=== PATIENT | female | born 1945 | race Caucasian/White ===

== ENCOUNTER → 2016-05-04 | Outpatient (CLI) | payer MEDICARE, OTHER ==
[~2016-05-04] MED LIST: CHOLESTEROL MED; PREDNISONE20 MG PO
[2016-05-04 07:50] VITALS: BP 137/78; PULSE 83
== END ==
LOC: COL.RAD 07:01
DX: K44.9 Diaphragmatic hernia without obstruction or gangrene (principal); I70.91 Generalized atherosclerosis; R10.31 Right lower quadrant pain; Z90.49 Acquired absence of other specified parts of digestive tract; Z90.710 Acquired absence of both cervix and uterus
CPT/HCPCS: Q9967

== ENCOUNTER → 2016-05-18 | Outpatient (CLI) | payer MEDICARE, OTHER | LOC: COL.RAD 14:37 | DX: Z85.9 Personal history of malignant neoplasm, unspecified (principal); F17.200 Nicotine dependence, unspecified, uncomplicated ==

== ENCOUNTER → 2017-03-22 | Outpatient (CLI) | payer MEDICARE, OTHER | LOC: MC.RAD 08:09 | DX: Z12.31 Encounter for screening mammogram for malignant neoplasm of breast (principal); N64.89 Other specified disorders of breast; C09.9 Malignant neoplasm of tonsil, unspecified; F32.9 Major depressive disorder, single episode, unspecified; J44.9 Chronic obstructive pulmonary disease, unspecified; H93.13 Tinnitus, bilateral ==

== ENCOUNTER → 2017-03-24 | Outpatient (CLI) | payer MEDICARE, OTHER | LOC: COL.RAD 13:19 | DX: R91.1 Solitary pulmonary nodule (principal); F17.200 Nicotine dependence, unspecified, uncomplicated ==

== ENCOUNTER → 2017-03-31 | Outpatient (CLI) | payer MEDICARE, OTHER | LOC: MC.RAD 03-30 13:30 | DX: D24.1 Benign neoplasm of right breast (principal) ==

== ENCOUNTER → 2017-12-15 | Outpatient (CLI) | payer MEDICARE, OTHER | LOC: COL.RAD 07:56 | DX: K59.00 Constipation, unspecified (principal); R91.1 Solitary pulmonary nodule; R10.9 Unspecified abdominal pain; R11.2 Nausea with vomiting, unspecified; Z90.49 Acquired absence of other specified parts of digestive tract ==

== ENCOUNTER 2018-02-24 06:56 | Day surgery (SDC) | payer MEDICARE, OTHER ==
[~2018-02-24] VITALS: Ht 167.6 cm; Wt 77.9 kg
[2018-02-24 07:47] VITALS: BP 132/62; PULSE 86; TEMP 98.9
[2018-02-24] MEDS ORDERED: ULTRAM 50MG TAB50 MG PO (08:03)
[2018-02-24] MEDS ORDERED: PROTONIX 40MG T40 MG PO (08:03)
[2018-02-24] MEDS ORDERED: VALIUM 5MG T5 MG/TAB PO (08:03)
[2018-02-24] MEDS ORDERED: ZOFRAN 4MG T4 MG/TAB PO (08:04)
[2018-02-24] MEDS ORDERED: PERCOCET 325 MG1 TA2 PO (08:05)
[2018-02-24] MEDS ORDERED: CELEXA40 MG PO (08:05)
[2018-02-24] MEDS ORDERED: MIRALAX PA17 GM/Dose PO (08:06)
[2018-02-24 10:08] VITALS: BP 128/63; PULSE 67; TEMP 98.2
[2018-02-24 10:23] VITALS: BP 125/58; PULSE 68
[2018-02-24 10:38] VITALS: BP 130/77; PULSE 66
== END 2018-02-24 11:00 | disposition home or self-care (01) ==
LOC: SDCO 06:56
DX: C20 Malignant neoplasm of rectum (principal); Z80.9 Family history of malignant neoplasm, unspecified; K58.9 Irritable bowel syndrome, unspecified; Z85.89 Personal history of malignant neoplasm of other organs and systems; F32.9 Major depressive disorder, single episode, unspecified; G47.33 Obstructive sleep apnea (adult) (pediatric); F17.210 Nicotine dependence, cigarettes, uncomplicated; F41.9 Anxiety disorder, unspecified; Z79.899 Other long term (current) drug therapy
CPT/HCPCS: C1788; J0690; J1644; J2250; J2405; J2704; J3010; J7120

== ENCOUNTER 2018-04-02 20:35 | Emergency (ER) | payer MEDICARE, OTHER ==
[~2018-04-02] VITALS: Ht 167.6 cm; Wt 68.2 kg
[~2018-04-02 20:35] MED LIST changes: +CELEXA40 MG PO; +MIRALAX PA17 GM/Dose PO; +PERCOCET 325 MG1 TA2 PO; +PROTONIX 40MG T40 MG PO; +ULTRAM 50MG TAB50 MG PO; +VALIUM 5MG T5 MG/TAB PO; +ZOFRAN 4MG T4 MG/TAB PO
[2018-04-02 21:15] LABS: BASO % 0.3 % (0.0-2.0); EOS # 0.4 (0.0-0.7); EOS % 4.4 % (0-4.0); GRAN # 5.2 (1.4-6.5); GRAN % 60.6 % (42.2-75.2); LYMPH # 2.6 (1.2-3.4); LYMPH % 29.8 % (20.0-51.0); MEAN CELL VOLUME 95 fl (80.0-100.0); MEAN CORPUSCULAR HGB CONC 32 g/dl (33.0-37.0); MEAN PLATELET VOLUME 8.9 fl (7.4-10.4); MONO # 0.4 (0.1-0.6); PLATELET COUNT 514 K/mm3 (130-400); RED BLOOD COUNT 3.29 M/mm3 (4.10-5.30); REDCELL DISTRIBUTION WIDTH-CV 14.2 % (11.5-14.5)
[2018-04-02 21:16] LABS: HEMATOCRIT 31.1 % (37.0-47.0); HEMOGLOBIN 9.8 g/dl (12.5-16.0); MEAN CORPUSCULAR HEMOGLOBIN 30 pg (27.0-31.0)
[2018-04-02 21:27] LABS: ALBUMIN 3.3 gm/dL (3.5-5.0); BILIRUBIN,TOTAL 0.5 mg/dL (0.0-1.0); C-REACTIVE PROTEIN 2.2 mg/dL (0.0-0.9); CALCIUM 9.1 mg/dL (8.4-10.2); CREATININE, serum 0.64 mg/dL (0.52-1.25); POTASSIUM 3.7 mmol/L (3.4-5.0); TOTAL PROTEIN 6.4 gm/dL (6.4-8.2)
[2018-04-02 23:13] VITALS: BP 120/92; PULSE 95; TEMP 97.9
== END 2018-04-02 23:22 | disposition home or self-care (01) ==
LOC: COL.ER 20:35
PROVIDERS: Emergency Medicine
DX: L76.22 Postprocedural hemorrhage of skin and subcutaneous tissue following other procedure (principal); Z90.49 Acquired absence of other specified parts of digestive tract; Z85.038 Personal history of other malignant neoplasm of large intestine; Z85.818 Personal history of malignant neoplasm of other sites of lip, oral cavity, and pharynx; Z87.891 Personal history of nicotine dependence
CPT/HCPCS: J7030

== ENCOUNTER 2018-04-03 19:34 | Emergency (ER) | payer MEDICARE, OTHER ==
[~2018-04-03] VITALS: Ht 167.6 cm; Wt 77.3 kg
[2018-04-03 19:36] VITALS: TEMP 98.5
[2018-04-03 20:24] LABS: BASO % 0.4 % (0.0-2.0); EOS # 0.3 (0.0-0.7); EOS % 3.1 % (0-4.0); GRAN # 6.5 (1.4-6.5); GRAN % 70.4 % (42.2-75.2); HEMOGLOBIN 10.2 g/dl (12.5-16.0); LYMPH # 1.9 (1.2-3.4); LYMPH % 20.7 % (20.0-51.0); MEAN CELL VOLUME 94 fl (80.0-100.0); MEAN CORPUSCULAR HEMOGLOBIN 30 pg (27.0-31.0); MEAN CORPUSCULAR HGB CONC 32 g/dl (33.0-37.0); MEAN PLATELET VOLUME 8.8 fl (7.4-10.4); MONO # 0.4 (0.1-0.6); MONO % 4.2 % (1.7-9.3); PLATELET COUNT 596 K/mm3 (130-400); RED BLOOD COUNT 3.36 M/mm3 (4.10-5.30); REDCELL DISTRIBUTION WIDTH-CV 14.4 % (11.5-14.5)
[2018-04-03 20:26] LABS: HEMATOCRIT 31.7 % (37.0-47.0)
[2018-04-03 20:30] LABS: ALBUMIN 3.6 gm/dL (3.5-5.0); BILIRUBIN,TOTAL 0.5 mg/dL (0.0-1.0); CALCIUM 9.3 mg/dL (8.4-10.2); CREATININE, serum 0.68 mg/dL (0.52-1.25); POTASSIUM 3.7 mmol/L (3.4-5.0); TOTAL PROTEIN 6.5 gm/dL (6.4-8.2)
[2018-04-03 21:26] VITALS: BP 110/70; PULSE 88
== END 2018-04-03 21:26 | disposition home or self-care (01) ==
LOC: COL.ER 19:34
PROVIDERS: Emergency Medicine
DX: L76.32 Postprocedural hematoma of skin and subcutaneous tissue following other procedure (principal); Z87.891 Personal history of nicotine dependence; Z90.710 Acquired absence of both cervix and uterus; Z85.818 Personal history of malignant neoplasm of other sites of lip, oral cavity, and pharynx; Z85.038 Personal history of other malignant neoplasm of large intestine

== ENCOUNTER → 2018-08-08 | Outpatient (CLI) | payer MEDICARE, OTHER | LOC: COL.RAD 08:30 | DX: K56.699 Other intestinal obstruction unspecified as to partial versus complete obstruction (principal); Z85.048 Personal history of other malignant neoplasm of rectum, rectosigmoid junction, and anus ==

== ENCOUNTER → 2018-10-05 | Outpatient (CLI) | payer MEDICARE, OTHER | LOC: COL.RAD 12:21 | DX: R10.30 Lower abdominal pain, unspecified (principal); R11.0 Nausea; Z93.3 Colostomy status; Z90.49 Acquired absence of other specified parts of digestive tract ==

== ENCOUNTER 2019-02-02 08:41 | Emergency (ER) | payer MEDICARE, OTHER ==
[~2019-02-02] VITALS: Ht 167.6 cm; Wt 70.5 kg
[2019-02-02 08:47] VITALS: TEMP 97.8
[2019-02-02 09:25] LABS: BASO # 0.1 (0.0-0.2); BASO % 0.6 % (0.0-2.0); EOS % 0.5 % (0-4.0); GRAN # 6.2 (1.4-6.5); GRAN % 77.4 % (42.2-75.2); HEMATOCRIT 42.2 % (37.0-47.0); HEMOGLOBIN 14.3 g/dl (12.5-16.0); LYMPH # 1.4 (1.2-3.4); LYMPH % 17.1 % (20.0-51.0); MEAN CELL VOLUME 90 fl (80.0-100.0); MEAN CORPUSCULAR HEMOGLOBIN 31 pg (27.0-31.0); MEAN CORPUSCULAR HGB CONC 34 g/dl (33.0-37.0); MONO # 0.3 (0.1-0.6); MONO % 3.9 % (1.7-9.3); PLATELET COUNT 327 K/mm3 (130-400); RED BLOOD COUNT 4.68 M/mm3 (4.10-5.30); REDCELL DISTRIBUTION WIDTH-CV 14.5 % (11.5-14.5)
[2019-02-02 09:34] LABS: ALANINE AMINOTRANSFERASE 21 U/L (9-52); ALBUMIN 4.3 gm/dL (3.5-5.0); ALKALINE PHOSPHATASE 111 U/L (50-136); ANION GAP 8 mmol/L (7-16); AST,SGOT 22 U/L (15-37); BILIRUBIN,TOTAL 0.4 mg/dL (0.0-1.0); BLOOD UREA NITROGEN 12 mg/dL (7-17); CALCIUM 9.9 mg/dL (8.4-10.2); CARBON DIOXIDE 23 mmol/L (22-30); CHLORIDE 110 mmol/L (98-107); CREATININE, serum 0.75 (0.52-1.25); GLUCOSE 138 mg/dL (74-106); LIPASE 62 U/L (23-300); POTASSIUM 3.9 mmol/L (3.4-5.0); SODIUM 141 mmol/L (137-145)
[2019-02-02 09:35] LABS: PROTHROMBIN TIME 11.5 SECONDS (9.7-12.8)
[2019-02-02 09:38] LABS: C-REACTIVE PROTEIN < 0.5 mg/dL (0.0-0.9)
[2019-02-02 10:16] LABS: COLLECTION METHOD CLEAN CATCH
[2019-02-02 10:30] LABS: PH 6 (5-8); SQUAMOUS EPITHELIAL 0-2 /hpf; URINE APPEARANCE Clear; URINE BACTERIA None Seen /hpf; URINE BILIRUBIN Negative (NEGATIVE); URINE BLOOD 1+ (NEGATIVE); URINE COLOR Yellow; URINE GLUCOSE Negative (NEGATIVE); URINE KETONE Negative (NEGATIVE); URINE LEUKOCYTE ESTERASE Negative (NEGATIVE); URINE NITRATE Negative (NEGATIVE); URINE PROTEIN(semi-quant) Negative (NEGATIVE); URINE UROBILINOGEN Negative (NEGATIVE)
[2019-02-02] MEDS ORDERED: AMOXICILLIN 8751 TAB PO (10:34)
[2019-02-02 11:28] VITALS: BP 138/70; PULSE 70
== END 2019-02-02 11:36 | disposition home or self-care (01) ==
LOC: COL.ER 08:41
PROVIDERS: Emergency Medicine
DX: K92.1 Melena (principal); R10.30 Lower abdominal pain, unspecified; Z85.038 Personal history of other malignant neoplasm of large intestine
CPT/HCPCS: C9113; J1200; J2405; J2930; J7030; Q9967

== ENCOUNTER → 2019-03-12 | Outpatient (CLI) | payer MEDICARE, OTHER ==
[~2019-03-12] MED LIST changes: +AMOXICILLIN 8751 TAB PO
== END ==
LOC: MHCPAIN 10:05
DX: M47.817 Spondylosis without myelopathy or radiculopathy, lumbosacral region (principal); M53.3 Sacrococcygeal disorders, not elsewhere classified
CPT/HCPCS: G0463

== ENCOUNTER → 2019-03-15 | Outpatient (CLI) | payer MEDICARE | LOC: MHCPAIN 09:44 | DX: M54.5 Low back pain (principal) | CPT/HCPCS: A9585; J1040; Q9967 ==

== ENCOUNTER → 2019-03-27 | Outpatient (CLI) | payer MEDICARE | LOC: MHCPAIN 09:57 | DX: M47.817 Spondylosis without myelopathy or radiculopathy, lumbosacral region (principal); M53.3 Sacrococcygeal disorders, not elsewhere classified | CPT/HCPCS: G0463 ==

== ENCOUNTER → 2020-03-06 | Outpatient (CLI) | payer MEDICARE, OTHER | LOC: COL.RAD 10:03 | DX: K59.00 Constipation, unspecified (principal); R11.0 Nausea ==

== ENCOUNTER 2020-08-17 12:39 | Emergency (ER) | payer MEDICARE, OTHER ==
[~2020-08-17] VITALS: Ht 167.6 cm; Wt 71.8 kg
[2020-08-17 13:02] VITALS: TEMP 98.7
[2020-08-17] MEDS ORDERED: PROTONIX 40MG T40 MG PO (13:30)
[2020-08-17] MEDS ORDERED: ULTRAM 50MG TAB50 MG PO (13:30)
[2020-08-17] MEDS ORDERED: LINZESS145CAP PO (13:30)
[2020-08-17] MEDS ORDERED: VALIUM 5MG T5 MG/TAB PO (13:31)
[2020-08-17] MEDS ORDERED: ZOCOR 20MG20 MG PO (13:31)
[2020-08-17 13:41] LABS: COLLECTION METHOD IN
[2020-08-17 13:46] LABS: BASO # 0.1 (0.0-0.2); BASO % 0.8 % (0.0-2.0); EOS # 0.1 (0.0-0.7); EOS % 0.7 % (0-4.0); GRAN # 4.9 (1.4-6.5); GRAN % 67.5 % (42.2-75.2); HEMATOCRIT 42.9 % (37.0-47.0); HEMOGLOBIN 14.2 g/dl (12.5-16.0); LYMPH # 1.9 (1.2-3.4); LYMPH % 25.7 % (20.0-51.0); MEAN CELL VOLUME 92 fl (80.0-100.0); MEAN CORPUSCULAR HEMOGLOBIN 30 pg (27.0-31.0); MEAN CORPUSCULAR HGB CONC 33 g/dl (33.0-37.0); MEAN PLATELET VOLUME 9.2 fl (7.4-10.4); MONO # 0.4 (0.1-0.6); MONO % 4.8 % (1.7-9.3); PLATELET COUNT 319 K/mm3 (130-400); RED BLOOD COUNT 4.68 M/mm3 (4.10-5.30); REDCELL DISTRIBUTION WIDTH-CV 14.2 % (11.5-14.5)
[2020-08-17 13:57] LABS: ALBUMIN 4.1 gm/dL (3.5-5.0); BILIRUBIN,TOTAL 0.4 mg/dL (0.0-1.0); CALCIUM 9.5 mg/dL (8.4-10.2); CREATININE, serum 0.71 (0.52-1.25); POTASSIUM 4.2 mmol/L (3.4-5.0); TOTAL PROTEIN 7.1 gm/dL (6.4-8.2)
[2020-08-17 14:08] LABS: MUCOUS Present /lpf; PH 5 (5-8); SQUAMOUS EPITHELIAL 0-2 /hpf; URINE APPEARANCE Hazy; URINE BACTERIA None Seen /hpf; URINE BILIRUBIN Negative (NEGATIVE); URINE BLOOD Negative (NEGATIVE); URINE COLOR Yellow; URINE GLUCOSE Negative (NEGATIVE); URINE KETONE Trace (NEGATIVE); URINE LEUKOCYTE ESTERASE Negative (NEGATIVE); URINE NITRATE Negative (NEGATIVE); URINE PROTEIN(semi-quant) Negative (NEGATIVE)
[2020-08-17 14:22] LABS: INR 1.1 (0.8-3.0); PROTHROMBIN TIME 11.9 SECONDS (9.7-12.8)
[2020-08-17] MEDS ORDERED: AMOXICILLIN 50500 MG PO (15:13)
[2020-08-17] MEDS ORDERED: MEDROL 4MG DOSPA4 MG PO (15:13)
[2020-08-17] MEDS ORDERED: ARTIFICIAL TEAR15 M7 OP (15:13)
[2020-08-17] MEDS ORDERED: ZOVIRAX800 MG PO (15:13)
[2020-08-17 15:40] VITALS: BP 129/70; PULSE 78
== END 2020-08-17 15:40 | disposition home or self-care (01) ==
LOC: COL.ER 12:39
PROVIDERS: Personal Emergency Response Attendant
DX: G51.0 Bell's palsy (principal); Z88.6 Allergy status to analgesic agent
CPT/HCPCS: J7030; J7512

== ENCOUNTER 2020-09-20 03:54 | Inpatient (IN) | payer MEDICARE, OTHER ==
[~2020-09-20] VITALS: Ht 167.6 cm; Wt 75.5 kg
[~2020-09-20 03:54] MED LIST changes: +AMOXICILLIN 50500 MG PO; +ARTIFICIAL TEAR15 M7 OP; +LINZESS145CAP PO; +MEDROL 4MG DOSPA4 MG PO; +ZOCOR 20MG20 MG PO; +ZOVIRAX800 MG PO
[2020-09-20 04:29] LABS: ARTERIAL BLD GAS O2 SATURATION 92.1 % (92-100); ARTERIAL BLD GAS TCO2 CT 22.9; ARTERIAL BLOOD GAS BASE EXCESS -0.6 (-2-2); ARTERIAL BLOOD GAS PCO2 30.6 mmHg (35-45); ARTERIAL BLOOD GAS pH 7.47 (7.35-7.45)
[2020-09-20 04:51] LABS: BASO % 0.7 % (0.0-2.0); EOS % 0.2 % (0-4.0); GRAN # 3.6 (1.4-6.5); GRAN % 78.5 % (42.2-75.2); HEMOGLOBIN 15.2 g/dl (12.5-16.0); LYMPH # 0.8 (1.2-3.4); LYMPH % 16.3 % (20.0-51.0); MEAN CELL VOLUME 92 fl (80.0-100.0); MEAN CORPUSCULAR HEMOGLOBIN 30 pg (27.0-31.0); MEAN CORPUSCULAR HGB CONC 33 g/dl (33.0-37.0); MEAN PLATELET VOLUME 9.4 fl (7.4-10.4); MONO # 0.2 (0.1-0.6); MONO % 3.9 % (1.7-9.3); PLATELET COUNT 300 K/mm3 (130-400); RED BLOOD COUNT 5.02 M/mm3 (4.10-5.30); REDCELL DISTRIBUTION WIDTH-CV 15.1 % (11.5-14.5)
[2020-09-20 05:04] LABS: ALBUMIN 4.1 gm/dL (3.5-5.0); BILIRUBIN,TOTAL 0.7 mg/dL (0.0-1.0); CALCIUM 9.9 mg/dL (8.4-10.2); CREATININE, serum 0.72 (0.52-1.25); POTASSIUM 3.8 mmol/L (3.4-5.0); TOTAL PROTEIN 6.9 gm/dL (6.4-8.2)
[2020-09-20 05:17] LABS: TROPONIN-I 0.075 ng/mL (0.000-0.035)
[2020-09-20 06:11] LABS: COLLECTION METHOD CLEAN CATCH
[2020-09-20 06:16] LABS: PH 6 (5-8); SQUAMOUS EPITHELIAL 0-2 /hpf; URINE APPEARANCE Clear; URINE BACTERIA None Seen /hpf; URINE BILIRUBIN Negative (NEGATIVE); URINE BLOOD Negative (NEGATIVE); URINE COLOR Yellow; URINE GLUCOSE Negative (NEGATIVE); URINE KETONE Negative (NEGATIVE); URINE LEUKOCYTE ESTERASE Negative (NEGATIVE); URINE NITRATE Negative (NEGATIVE); URINE PROTEIN(semi-quant) Negative (NEGATIVE); URINE UROBILINOGEN Negative (NEGATIVE)
--- NOTE | 2020-09-20 10:37 | NUR ---
Pt admitted to medical floor rm [id number] from ED via WC, A&O x 4, reports headache pain 7 out of 10 on pain scale. PRN Tylenol administered per orders after notifying provider. Breath sounds slightly diminished in bases bilat. O2 provided via NC at 1 L/min. Saline lock IV to right AC without s/s of complications. Pt denies further needs at this time. Call light in reach.
[2020-09-20 12:00] VITALS: BP 136/74; PULSE 101; TEMP 99.3
[2020-09-20 14:34] LABS: TRICYCLIC ANTIDEPRESS URINE NEGATIVE
[2020-09-20 15:58] VITALS: BP 138/58; PULSE 92; TEMP 99
--- NOTE | 2020-09-20 18:56 | NUR ---
Report with HARVINDER Pham. Pt has had slight pain per baseline, PRN medication administered x 1 dose this afternoon. IV to right AC infiltrated at start of IV antibiotics which were immediately stopped and IV removed. Pt requested waiting to start new IV for pain to subside. New IV eventually started to left lateral forearm. O2 remains at 1-2 L/min via NC.
[2020-09-20 19:50] VITALS: BP 96/48; PULSE 91; TEMP 98.4
--- NOTE | 2020-09-20 22:04 | NUR ---
PT VERY SLEEPY, WOKE UP FOR ASSESS. DENIES PAIN OR LIGHTHEAD, DIZZY. SOA W EXCERTION. IV FLUIDS AND ZOSYN RUNNING. PT DID NOT EAT DINNER, POOR APPEITE. POC DISCUSSED. CALL LIGHT WI REACH. NEEDS MET.
[2020-09-21] VITALS (7 sets, daily range): BP systolic 105–130; BP diastolic 38–65; PULSE 78–87; TEMP 98.4–99.5
--- NOTE | 2020-09-21 04:49 | NUR ---
RESTED THOUGH THE NIGHT WO INCIDENT. DENTON FOR ROWE THIS AM. NEEDS MET.
[2020-09-21 06:57] LABS: MEAN CELL VOLUME 94 fl (80.0-100.0); MEAN CORPUSCULAR HGB CONC 32 g/dl (33.0-37.0); MEAN PLATELET VOLUME 10.4 fl (7.4-10.4); RED BLOOD COUNT 3.65 M/mm3 (4.10-5.30); REDCELL DISTRIBUTION WIDTH-CV 15.6 % (11.5-14.5)
--- NOTE | 2020-09-21 07:00 | NUR ---
Report with HARVINDER Pham. Pt sitting up in bed, c/o feeling anxious/stressed about the recent needle sticks, requesting medication if available. This nurse agrees to ask provider. IVF's infusing per orders through left forearm site without s/s of complications. No further needs reported. Call light in reach.
[2020-09-21 07:06] LABS: HEMATOCRIT 34.3 % (37.0-47.0); HEMOGLOBIN 11.1 g/dl (12.5-16.0); MEAN CORPUSCULAR HEMOGLOBIN 30 pg (27.0-31.0); PLATELET COUNT 189 K/mm3 (130-400)
[2020-09-21 07:26] LABS: CALCIUM 9.2 mg/dL (8.4-10.2); CREATININE, serum 0.68 (0.52-1.25); POTASSIUM 3.8 mmol/L (3.4-5.0)
[2020-09-21 08:04] LABS: BAND 10 % (0-10); LYMPHOCYTE 19 % (20.0-51.0); NEUTROPHILS 70 % (42.0-75.2)
[2020-09-21 08:06] LABS: HYPOCHROMIA 1+
[2020-09-21 08:07] LABS: ANISOCYTOSIS 1+; PLATELET ESTIMATE NORMAL (NORMAL)
--- NOTE | 2020-09-21 09:00 | NUR ---
IVF's stopped and disconnected per orders. Provider plans to discuss anxiety medication with pt during rounding.
--- NOTE | 2020-09-21 11:21 | NUR ---
Sw met with the pt who stated her preference to return home once medically stable. The pt lives at home with her , Omar (ph# [phone]). The pt informed the Sw that she is independent on all ADLs and does not use any DME. The pt was wearing oxygen in the room, and she tells the Sw she does not use o2 at home. The pt does not have a DPOA-Hc and is not interested in one at this time. The Pt pcp is Dr. Chin and gets her medications from [facility]. The pt has not used HH services before and does not want them. No other needs stated at this time. Sw to await further recommendations and follow up as needed. D/c: Home
--- NOTE | 2020-09-21 19:35 | NUR ---
Report with HARVINDER Willis. Pt resting in bed, sched abx administered, no further needs reported. Call light in reach.
--- NOTE | 2020-09-21 20:45 | NUR ---
PATIENT IS CALM IN BED.DENIES PAIN.SAFETY MEASURES IN PLACE.NO OTHER NEEDS AT THIS TIME.
[2020-09-22 04:05] VITALS: BP 129/67; PULSE 77; TEMP 98.6
--- NOTE | 2020-09-22 05:24 | NUR ---
PATIENT HAD UNEVENTFUL NIGHT.REPORTS OF HEADACHE MEDS GIVEN.SAFETY MEASURES IN PLACE.NO OTHER NEEDS AT THIS TIME.
--- NOTE | 2020-09-22 07:01 | NUR ---
Report received from HARVINDER Willis. PT in bed resting, phillip cooper, will continue to monitor.
[2020-09-22 07:23] LABS: BASO % 0.3 % (0.0-2.0); EOS # 0.1 (0.0-0.7); EOS % 0.6 % (0-4.0); GRAN # 10.8 (1.4-6.5); HEMOGLOBIN 11.4 g/dl (12.5-16.0); LYMPH # 1.2 (1.2-3.4); LYMPH % 9.7 % (20.0-51.0); MEAN CELL VOLUME 91 fl (80.0-100.0); MEAN CORPUSCULAR HEMOGLOBIN 30 pg (27.0-31.0); MEAN CORPUSCULAR HGB CONC 33 g/dl (33.0-37.0); MEAN PLATELET VOLUME 10.2 fl (7.4-10.4); MONO # 0.5 (0.1-0.6); MONO % 3.5 % (1.7-9.3); PLATELET COUNT 210 K/mm3 (130-400); RED BLOOD COUNT 3.78 M/mm3 (4.10-5.30); REDCELL DISTRIBUTION WIDTH-CV 15.4 % (11.5-14.5)
[2020-09-22 07:24] LABS: HEMATOCRIT 34.4 % (37.0-47.0)
[2020-09-22 07:33] LABS: CALCIUM 9.3 mg/dL (8.4-10.2); CREATININE, serum 0.63 (0.52-1.25); POTASSIUM 3.6 mmol/L (3.4-5.0)
[2020-09-22 09:17] VITALS: BP 128/58; PULSE 76; TEMP 98.1
--- NOTE | 2020-09-22 09:30 | NUR ---
Assessment charted. PT in bed resting, states she is feeling very well today and would really like to discharge. Able to remain on RA without any oxygen. Resting quietly between disturbances. discussed pt has PAC to [facility] and it is not currently accessed, if pt stays we will access and utilize for labs moving forward. INT to LFA. Will continue destiny ontior.
[2020-09-22 12:02] VITALS: BP 130/60; PULSE 75; TEMP 98.5
[2020-09-22] MEDS ORDERED: AMOXICILLIN 8751 TAB PO (12:32)
--- NOTE | 2020-09-22 12:32 | NUR ---
Intial visit; Patient thanked Parimutuel Clerk for looking in on her and stated her hearing aid batteries were and she couldn't hear but she understood who Parimutuel Clerk was and was happy to receive a prayer.
[2020-09-22] MEDS ORDERED: PROAIR HFA0.09 MG/AC IH (12:34)
--- NOTE | 2020-09-22 13:30 | NUR ---
Discharge teaching completed at [facility]. Pt INT dc'd, tip intact. Discharge packet reviewed, f/u appointments, new scripts, answered all questions. Pt escorted out by myself with all belongings, to drive home, criteria met.
== END 2020-09-22 13:30 | disposition home or self-care (01) | DRG 177 ==
LOC: COL.ER 03:54 → MEDICAL 07:52
PROVIDERS: Emergency Medicine; ADMIT Student in an Organized Health Care Education/Training Program
DX: J69.0 Pneumonitis due to inhalation of food and vomit (principal); J96.01 Acute respiratory failure with hypoxia; G92 Toxic encephalopathy; R65.10 Systemic inflammatory response syndrome (SIRS) of non-infectious origin without acute organ dysfunction; I24.8 Other forms of acute ischemic heart disease; K59.00 Constipation, unspecified; G89.29 Other chronic pain; F41.9 Anxiety disorder, unspecified; K52.9 Noninfective gastroenteritis and colitis, unspecified; Z90.710 Acquired absence of both cervix and uterus; Z90.49 Acquired absence of other specified parts of digestive tract; Z85.038 Personal history of other malignant neoplasm of large intestine
CPT/HCPCS: 99223-AI; 99233-AI; 99239; J0456; J0692; J1650; J2543; J7030; J7050; J7120

== ENCOUNTER 2020-09-26 09:52 | Emergency (ER) | payer MEDICARE, OTHER ==
[~2020-09-26] VITALS: Ht 167.6 cm; Wt 70.5 kg
[~2020-09-26 09:52] MED LIST changes: +PROAIR HFA0.09 MG/AC IH
[2020-09-26 09:56] VITALS: TEMP 98.8
[2020-09-26 10:20] LABS: BASO # 0.1 (0.0-0.2); BASO % 0.7 % (0.0-2.0); EOS % 0.3 % (0-4.0); GRAN % 69.9 % (42.2-75.2); HEMATOCRIT 38.5 % (37.0-47.0); HEMOGLOBIN 12.5 g/dl (12.5-16.0); LYMPH # 2.4 (1.2-3.4); LYMPH % 24.3 % (20.0-51.0); MEAN CELL VOLUME 92 fl (80.0-100.0); MEAN CORPUSCULAR HEMOGLOBIN 30 pg (27.0-31.0); MEAN CORPUSCULAR HGB CONC 33 g/dl (33.0-37.0); MEAN PLATELET VOLUME 9.2 fl (7.4-10.4); MONO # 0.4 (0.1-0.6); MONO % 3.6 % (1.7-9.3); PLATELET COUNT 401 K/mm3 (130-400); REDCELL DISTRIBUTION WIDTH-CV 15.1 % (11.5-14.5)
[2020-09-26 10:22] LABS: COLLECTION METHOD CLEAN CATCH
[2020-09-26 10:27] LABS: MUCOUS Present /lpf; PH 8 (5-8); SQUAMOUS EPITHELIAL None Seen /hpf; URINE APPEARANCE Clear; URINE BACTERIA None Seen /hpf; URINE BILIRUBIN Negative (NEGATIVE); URINE BLOOD Negative (NEGATIVE); URINE COLOR Yellow; URINE GLUCOSE Negative (NEGATIVE); URINE KETONE Negative (NEGATIVE); URINE LEUKOCYTE ESTERASE Negative (NEGATIVE); URINE NITRATE Negative (NEGATIVE); URINE PROTEIN(semi-quant) Negative (NEGATIVE); URINE UROBILINOGEN Negative (NEGATIVE)
[2020-09-26 10:31] LABS: ALANINE AMINOTRANSFERASE 39 U/L (4-34); ALBUMIN 3.6 gm/dL (3.5-5.0); ALKALINE PHOSPHATASE 178 U/L (50-136); ANION GAP 6 mmol/L (7-16); AST,SGOT 32 U/L (15-37); BILIRUBIN,TOTAL 0.3 mg/dL (0.0-1.0); BLOOD UREA NITROGEN 8 mg/dL (7-17); CALCIUM 9.6 mg/dL (8.4-10.2); CARBON DIOXIDE 23 mmol/L (22-30); CHLORIDE 111 mmol/L (98-107); CREATININE, serum 0.63 (0.52-1.25); GLUCOSE 117 mg/dL (74-106); POTASSIUM 3.7 mmol/L (3.4-5.0); SODIUM 141 mmol/L (137-145); TOTAL PROTEIN 6.4 gm/dL (6.4-8.2)
[2020-09-26 10:43] LABS: TROPONIN-I < 0.012 ng/mL (0.000-0.035)
[2020-09-26] MEDS ORDERED: ZOFRAN 4MG T4 MG/TAB PO (14:08)
[2020-09-26] MEDS ORDERED: VALIUM 2MG T2 MG/TAB PO (14:08)
[2020-09-26 15:00] VITALS: BP 136/71; PULSE 80
== END 2020-09-26 15:00 | disposition home or self-care (01) ==
LOC: COL.ER 09:52
PROVIDERS: Emergency Medicine
DX: E86.0 Dehydration (principal); R11.2 Nausea with vomiting, unspecified; R10.13 Epigastric pain; K21.9 Gastro-esophageal reflux disease without esophagitis; G89.29 Other chronic pain; Z85.038 Personal history of other malignant neoplasm of large intestine; Z20.822 Contact with and (suspected) exposure to COVID-19; Z90.710 Acquired absence of both cervix and uterus; Z79.891 Long term (current) use of opiate analgesic; Z79.899 Other long term (current) drug therapy
CPT/HCPCS: J2060; J2405; Q9967

== ENCOUNTER 2020-09-30 18:06 | Emergency (ER) | payer MEDICARE, OTHER ==
[~2020-09-30] VITALS: Ht 167.6 cm; Wt 69.1 kg
[~2020-09-30 18:06] MED LIST changes: +VALIUM 2MG T2 MG/TAB PO
[2020-09-30 18:35] LABS: BASO # 0.1 (0.0-0.2); BASO % 0.5 % (0.0-2.0); EOS % 0.4 % (0-4.0); GRAN # 6.4 (1.4-6.5); GRAN % 67.3 % (42.2-75.2); HEMOGLOBIN 12.8 g/dl (12.5-16.0); LYMPH # 2.5 (1.2-3.4); LYMPH % 26.7 % (20.0-51.0); MEAN CELL VOLUME 89 fl (80.0-100.0); MEAN CORPUSCULAR HEMOGLOBIN 30 pg (27.0-31.0); MEAN CORPUSCULAR HGB CONC 34 g/dl (33.0-37.0); MEAN PLATELET VOLUME 8.7 fl (7.4-10.4); MONO # 0.4 (0.1-0.6); MONO % 4.7 % (1.7-9.3); PLATELET COUNT 562 K/mm3 (130-400); RED BLOOD COUNT 4.26 M/mm3 (4.10-5.30); REDCELL DISTRIBUTION WIDTH-CV 15.4 % (11.5-14.5)
[2020-09-30 18:45] LABS: ALBUMIN 4.1 gm/dL (3.5-5.0); BILIRUBIN,TOTAL 0.1 mg/dL (0.0-1.0); CALCIUM 9.9 mg/dL (8.4-10.2); CREATININE, serum 0.72 (0.52-1.25); POTASSIUM 3.9 mmol/L (3.4-5.0); TOTAL PROTEIN 7.1 gm/dL (6.4-8.2)
[2020-09-30 19:23] VITALS: TEMP 99.1
[2020-09-30 19:42] LABS: COLLECTION METHOD CLEAN CATCH
[2020-09-30 19:56] LABS: PH 8 (5-8); SQUAMOUS EPITHELIAL 0-2 /hpf; URINE APPEARANCE Clear; URINE BACTERIA Rare /hpf; URINE BILIRUBIN Negative (NEGATIVE); URINE BLOOD Negative (NEGATIVE); URINE COLOR Yellow; URINE GLUCOSE Negative (NEGATIVE); URINE KETONE Negative (NEGATIVE); URINE LEUKOCYTE ESTERASE Negative (NEGATIVE); URINE NITRATE Negative (NEGATIVE); URINE PROTEIN(semi-quant) Negative (NEGATIVE); URINE RBC 0-2 /hpf; URINE UROBILINOGEN Negative (NEGATIVE)
[2020-09-30 21:30] VITALS: BP 127/61; PULSE 72
== END 2020-09-30 21:48 | disposition home or self-care (01) ==
LOC: COL.ER 18:06
PROVIDERS: Emergency Medicine; Personal Emergency Response Attendant
DX: F41.1 Generalized anxiety disorder (principal); R06.02 Shortness of breath; G89.29 Other chronic pain; R10.84 Generalized abdominal pain; E86.0 Dehydration; F17.200 Nicotine dependence, unspecified, uncomplicated; Z85.038 Personal history of other malignant neoplasm of large intestine; Z90.710 Acquired absence of both cervix and uterus
CPT/HCPCS: J1200; J1630; J2270; J2405; J7030

== ENCOUNTER 2020-10-03 13:32 | Emergency (ER) | payer MEDICARE, OTHER ==
[~2020-10-03] VITALS: Ht 167.6 cm; Wt 68.2 kg
[2020-10-03 14:07] LABS: BASO # 0.1 (0.0-0.2); BASO % 0.9 % (0.0-2.0); EOS % 0.3 % (0-4.0); GRAN # 6.5 (1.4-6.5); GRAN % 72.3 % (42.2-75.2); HEMATOCRIT 42.8 % (37.0-47.0); HEMOGLOBIN 14.1 g/dl (12.5-16.0); LYMPH % 22.3 % (20.0-51.0); MEAN CELL VOLUME 91 fl (80.0-100.0); MEAN CORPUSCULAR HEMOGLOBIN 30 pg (27.0-31.0); MEAN CORPUSCULAR HGB CONC 33 g/dl (33.0-37.0); MEAN PLATELET VOLUME 8.9 fl (7.4-10.4); MONO # 0.3 (0.1-0.6); MONO % 3.8 % (1.7-9.3); PLATELET COUNT 583 K/mm3 (130-400); RED BLOOD COUNT 4.72 M/mm3 (4.10-5.30)
[2020-10-03 14:20] LABS: ALBUMIN 4.5 gm/dL (3.5-5.0); BILIRUBIN,TOTAL 0.5 mg/dL (0.0-1.0); C-REACTIVE PROTEIN 0.6 mg/dL (0.0-0.9); CALCIUM 9.9 mg/dL (8.4-10.2); CREATININE, serum 0.71 (0.52-1.25); POTASSIUM 3.7 mmol/L (3.4-5.0); TOTAL PROTEIN 7.9 gm/dL (6.4-8.2)
[2020-10-03 15:29] VITALS: BP 133/70; PULSE 85; TEMP 98
== END 2020-10-03 15:39 | disposition home or self-care (01) ==
LOC: COL.ER 13:32
PROVIDERS: Family Medicine
DX: K29.70 Gastritis, unspecified, without bleeding (principal); F41.9 Anxiety disorder, unspecified; F17.210 Nicotine dependence, cigarettes, uncomplicated; Z85.038 Personal history of other malignant neoplasm of large intestine; Z90.710 Acquired absence of both cervix and uterus; Z79.899 Other long term (current) drug therapy
CPT/HCPCS: C9113; J2405; J7120

== ENCOUNTER 2020-10-06 16:22 | Emergency (ER) | payer MEDICARE, OTHER ==
[~2020-10-06] VITALS: Ht 167.6 cm; Wt 72.7 kg
[2020-10-06 16:43] VITALS: TEMP 98.8
[2020-10-06 17:22] LABS: BASO # 0.1 (0.0-0.2); BASO % 0.8 % (0.0-2.0); EOS % 0.4 % (0-4.0); GRAN # 5.4 (1.4-6.5); GRAN % 71.4 % (42.2-75.2); HEMATOCRIT 40.5 % (37.0-47.0); HEMOGLOBIN 13.5 g/dl (12.5-16.0); LYMPH # 1.6 (1.2-3.4); LYMPH % 20.7 % (20.0-51.0); MEAN CELL VOLUME 90 fl (80.0-100.0); MEAN CORPUSCULAR HEMOGLOBIN 30 pg (27.0-31.0); MEAN CORPUSCULAR HGB CONC 33 g/dl (33.0-37.0); MEAN PLATELET VOLUME 8.9 fl (7.4-10.4); MONO # 0.5 (0.1-0.6); MONO % 6.4 % (1.7-9.3); PLATELET COUNT 483 K/mm3 (130-400); RED BLOOD COUNT 4.51 M/mm3 (4.10-5.30); REDCELL DISTRIBUTION WIDTH-CV 14.9 % (11.5-14.5)
[2020-10-06 17:34] LABS: ALBUMIN 4.2 gm/dL (3.5-5.0); BILIRUBIN,TOTAL 0.4 mg/dL (0.0-1.0); C-REACTIVE PROTEIN 0.6 mg/dL (0.0-0.9); CALCIUM 9.9 mg/dL (8.4-10.2); CREATININE, serum 0.7 (0.52-1.25); POTASSIUM 3.9 mmol/L (3.4-5.0); TOTAL PROTEIN 7.1 gm/dL (6.4-8.2)
[2020-10-06 17:37] LABS: COLLECTION METHOD CLEAN CATCH
[2020-10-06 17:51] LABS: PH 7 (5-8); SQUAMOUS EPITHELIAL None Seen /hpf; URINE APPEARANCE Clear; URINE BACTERIA None Seen /hpf; URINE BILIRUBIN Negative (NEGATIVE); URINE BLOOD Negative (NEGATIVE); URINE COLOR Yellow; URINE GLUCOSE Negative (NEGATIVE); URINE KETONE Negative (NEGATIVE); URINE LEUKOCYTE ESTERASE Negative (NEGATIVE); URINE NITRATE Negative (NEGATIVE); URINE PROTEIN(semi-quant) Negative (NEGATIVE); URINE RBC 0-2 /hpf; URINE UROBILINOGEN Negative (NEGATIVE)
[2020-10-06 18:18] VITALS: BP 125/78; PULSE 78
== END 2020-10-06 18:18 | disposition home or self-care (01) ==
LOC: COL.ER 16:22
PROVIDERS: Family Medicine
DX: K29.70 Gastritis, unspecified, without bleeding (principal); F41.9 Anxiety disorder, unspecified; I10 Essential (primary) hypertension; Z79.899 Other long term (current) drug therapy
CPT/HCPCS: J2405; J7120

== ENCOUNTER → 2021-07-27 | Outpatient (CLI) | payer MEDICARE, OTHER | LOC: COL.RAD 11:47 | DX: R51.9 Headache, unspecified (principal); Z86.69 Personal history of other diseases of the nervous system and sense organs ==

== ENCOUNTER 2022-04-01 13:57 | Outpatient (CLI) | payer MEDICARE, OTHER ==
[~2022-04-01] VITALS: Ht 167.6 cm; Wt 69.4 kg
[~2022-04-01 13:57] MED LIST changes: +ANTIVERT 12.512.5 MG PO; +BUSPAR10 MG PO; +INDERAL 10MG10 MG PO; +PHENERGAN 25 TA25 MG PO; +PROMETHAZINE12.5 M5 PO; +REMERON 15M15 MG/TA1 PO; +TYLENOL 500MG500 MG PO; +ZOLOFT 25MG25 MG PO
[2022-04-01 14:45] VITALS: BP 176/102; PULSE 75; TEMP 97.9
[2022-04-01] MEDS ORDERED: WELLBUTRIN SR150 M1 PO (15:09)
[2022-04-01] MEDS ORDERED: ULTRAM 50MG TAB50 MG PO (15:11)
[2022-04-01] MEDS ORDERED: SUBOXONE 2 MG-01 FIL SL (15:11)
--- NOTE | 2022-04-01 15:50 | NUR ---
HAD PT WAIT 30 MINUTES POST INFUSION. PT STATES NO ITCHING OR IRRITATION, NO DIZZINESS OR NAUSEA. PT IV DISCONTIUED. AMBULATED PT AND TO FRONT DOOR.
== END 2022-04-01 15:50 | disposition home or self-care (01) ==
LOC: EUO 13:57
DX: M81.0 Age-related osteoporosis without current pathological fracture (principal)
CPT/HCPCS: J3489

== ENCOUNTER 2022-12-09 10:12 | Day surgery (SDC) | payer MEDICARE, OTHER ==
[~2022-12-09] VITALS: Ht 165.1 cm; Wt 70.3 kg
[~2022-12-09 10:12] MED LIST changes: +SUBOXONE 2 MG-01 FIL SL; +WELLBUTRIN SR150 M1 PO
[2022-12-09 11:22] LABS: BASO # 0.1 K/mm3 (0.0-0.2); BASO % 1.1 % (0.0-2.0); EOS # 0.2 K/mm3 (0.0-0.7); EOS % 2.5 % (0.0-4.0); GRAN # 4.3 K/mm3 (1.4-6.5); HEMATOCRIT 44.5 % (37.0-47.0); HEMOGLOBIN 14.7 g/dl (12.5-16.0); LYMPH # 1.5 K/mm3 (1.2-3.4); LYMPH % 23.4 % (20.0-51.0); MEAN CELL VOLUME 94 fl (80.0-100.0); MEAN CORPUSCULAR HEMOGLOBIN 31 pg (27-31); MEAN CORPUSCULAR HGB CONC 33 g/dl (33.0-37.0); MONO # 0.3 K/mm3 (0.1-0.6); MONO % 4.7 % (1.7-9.3); PLATELET COUNT 253 K/mm3 (130-400); RED BLOOD COUNT 4.73 M/mm3 (4.10-5.30); REDCELL DISTRIBUTION WIDTH-CV 13.7 % (11.5-14.5)
[2022-12-09 11:39] LABS: CALCIUM 9.1 mg/dL (8.4-10.2); CREATININE, serum 0.84 mg/dL (0.57-1.11); POTASSIUM 4.1 mmol/L (3.5-4.5)
[2022-12-09 11:43] VITALS: BP 143/89; PULSE 68; TEMP 97.3
[2022-12-09] MEDS ORDERED: TOPAMAX 25MG25 M1 PO (12:05)
[2022-12-09] MEDS ORDERED: ZANAFLEX2 MG PO (12:06)
[2022-12-09] MEDS ORDERED: ZOLOFT 100MG100 MG PO (12:06)
[2022-12-09] MEDS ORDERED: BUSPAR DIVIDOSE15 MG PO (12:07)
[2022-12-09] MEDS ORDERED: MAXITROL OPHTH3.5 GM OP (12:08)
[2022-12-09] MEDS ORDERED: NORCO 325 MG-51 TAB PO (14:39)
[2022-12-09 15:00] VITALS: BP 120/82; PULSE 66; TEMP 97.4
[2022-12-09 15:15] VITALS: BP 134/58; PULSE 60
[2022-12-09 15:30] VITALS: BP 147/66; PULSE 60
[2022-12-09 15:45] VITALS: BP 122/66; PULSE 60
--- NOTE | 2022-12-09 15:55 | NUR ---
1500 RETURNS TO ROOM 2 PER CART. AWAKE, ALERT. RESP UNLABORED. HOB ELEVATED 30 DEGREES. VITAL SIGNS OBTAINED. ABD SOFT. INCISION X 3 SITES WITHOUT REDNESS OR DRAINAGE. WELL APPOXIMATED. REPORTS MILD ABD DISCOMFORT. CALL LIGHT AT SIDE 1515 TOLERATES PO WATER WITHOUT NAUSEA 1525 DISCHARGE INSTRUCTIONS REVIEWED. PATIENT VERBALIZES UNDERSTANDING. COPY PROVIDED IN DISCHARGE FOLDER 1529 PO PAIN MED GIVEN PER PATIENT REQUEST PRIOR TO VEHICLE RIDE HOME. REPORTS MODERATEE ABD DISCOMFORT 1545 REPORTS INCREASED COMFORT, EXPRESSES DESIRE TO BE DISCHARGED 1548 SITS ON EDGE OF BED. DRESSES WITH MINIMAL ASSIST. MOVES WELL
[2022-12-09 18:56] VITALS: BP 126/55; PULSE 60; TEMP 97.8
[2022-12-10] MEDS ORDERED: CEPHALEXIN500 M1 PO (17:56)
== END 2022-12-09 15:55 | disposition home or self-care (01) ==
LOC: SDCO 10:12
PROVIDERS: Surgery
DX: K40.90 Unilateral inguinal hernia, without obstruction or gangrene, not specified as recurrent (principal); F17.210 Nicotine dependence, cigarettes, uncomplicated
CPT/HCPCS: C1781; J0330; J0690; J1100; J1170; J2405; J2704; J3010; J7120

== ENCOUNTER 2023-10-14 08:49 | Inpatient (IN) | payer MEDICARE, OTHER ==
[~2023-10-14] VITALS: Ht 167.6 cm; Wt 72.0 kg
[2023-10-14] VITALS (12 sets, daily range): BP systolic 104–149; BP diastolic 62–77; PULSE 69–104; TEMP 97.4–98.1
[~2023-10-14 08:49] MED LIST changes: +ADVIL200 MG PO; +BUSPAR DIVIDOSE15 MG PO; +CEPHALEXIN500 M1 PO; +CYMBALTA 20MG20 MG PO; +MAXITROL OPHTH3.5 GM OP; +NEURONTIN300 MG/CAP PO; +NORCO 325 MG-51 TAB PO; +NORVASC 5MG5 MG/TAB PO; +TOPAMAX 25MG25 M1 PO; +WELLBUTRIN XL150 MG PO; +ZANAFLEX2 MG PO; +ZOLOFT 100MG100 MG PO
--- NOTE | 2023-10-14 09:27 | NUR ---
PT ON FLOOR VIA WHEELCHAIR WITH . PT REPORTS AMBULATING INDEPENDENTLY AT HOME BUT REPORTS DIZZINESS, PT MADE A FALL RISK AND UPDATED ON THIS. PT ORIENTED TO ROOM AND DENIES NEEDS. PLACEMENT ASSISTANT AT BEDSIDE.
--- NOTE | 2023-10-14 10:00 | NUR ---
INTAKE, PHYSICAL AND MED REC DONE. PT DENIES PAIN BUT REPORTS INTERMITTENT DIZZINESS. PT PLACED ON FALL PRECAUTIONS AND EDUCATED ON THIS. 22G IV STARTED IN LEFT FOREARM. PT ORIENTED TO ROOM AND DENIES NEEDS. BED IN LOWEST POSITION, CALL LIGHT IN REACH, BED ALARM ON
--- NOTE | 2023-10-14 11:04 | NUR ---
PT TAKEN DOWN BY ENTERTAINMENT DANCER FOR CHEST TUBE PLACEMENT.
--- NOTE | 2023-10-14 11:15 | NUR ---
Pt to ct per wheelchair. Pt up and onto ct table per staff. Monitors applied and O2 at 2l/nc.
[2023-10-14] MEDS ORDERED: fentaNYL 50 MCG/ML 2 ML VIAL IV SCH (11:25)
[2023-10-14] MEDS ORDERED: Midazolam 2 MG/2 ML VIAL IV SCH (11:25)
--- NOTE | 2023-10-14 11:28 | NUR ---
Chest tube placed in right upper chest wall by Dr Stuart. Dr Stuart removed large volume of air from lung. Verified with ct right lung has reexpanded.
[2023-10-14] MEDS ORDERED: DULOXETINE PO SCH (11:56)
[2023-10-14] MEDS ORDERED: Gabapentin 100 MG CAP PO SCH (11:56)
[2023-10-14] MEDS ORDERED: buPROPion XL (24-HR) 150 MG TAB PO SCH (11:56)
[2023-10-14] MEDS ORDERED: amLODIPine 5 MG TAB PO SCH (11:57)
[2023-10-14] MEDS ORDERED: Meclizine 12.5 MG TAB PO PRN (12:00)
[2023-10-14] MEDS ORDERED: Acetaminophen 500 MG TAB PO PRN (12:00)
[2023-10-14] MEDS ORDERED: Albuterol/Ipratropium 3 MG-0.5 MG/3 ML Neb Soln IH PRN (12:00)
[2023-10-14] MEDS ORDERED: Morphine 4 MG/ML VIAL IV PRN (12:15)
[2023-10-14] MEDS ORDERED: oxyCODONE 5 MG TAB PO PRN (12:15)
--- NOTE | 2023-10-14 12:15 | NUR ---
PT REPORTING 10/10 CHEST PAIN WHERE CHEST TUBE WAS INSERTED. PT TACHYPNEIC AND MOANING IN ROOM. PT PRESSING SITE WHILE COMPLAINING OF PAIN, PT EDUCATED ON CONTROLLING BREATHING AND NOT TOUCHING SITE. PRN MORPHINE GIVEN PER ORDER.
[2023-10-14] MEDS ORDERED: Acetaminophen 500 MG TAB PO SCH (12:30)
[2023-10-14] MEDS ORDERED: FOSAMAX 10M10 MG/TAB PO (12:43)
[2023-10-14] MEDS ORDERED: CYMBALTA 30MG30 MG PO (12:45)
[2023-10-14] MEDS ORDERED: Albuterol/Ipratropium 3 MG-0.5 MG/3 ML Neb Soln IH SCH (13:00)
[2023-10-14] MEDS ORDERED: ALPRAZolam 0.5 MG TAB PO ONE (13:30)
[2023-10-14] MEDS ORDERED: Gabapentin 100 MG CAP PO ONE (13:30)
[2023-10-14] MEDS ORDERED: Morphine 4 MG/ML VIAL IV ONE (13:30)
[2023-10-14] MEDS ORDERED: busPIRone 5 MG TAB PO SCH (14:00)
--- NOTE | 2023-10-14 14:19 | NUR ---
PT REPORTING 9/10 PAIN AND STATING "GIVE ME SOMETHING PLEASE". PT GIVEN ONE TIME ORDER OF MORPHINE.
--- NOTE | 2023-10-14 14:19 | NUR ---
THIS NURSE CALLED RADIOLOGY AND UPDATED ON CHEST XRAY ORDER
[2023-10-14 14:27] LABS: BASO # 0.1 K/mm3 (0.0-0.2); BASO % 0.7 % (0.0-2.0); EOS # 0.4 K/mm3 (0.0-0.7); EOS % 4.7 % (0.0-4.0); GRAN % 65.9 % (42.2-75.2); HEMATOCRIT 39.5 % (37.0-47.0); HEMOGLOBIN 12.8 g/dl (12.5-16.0); LYMPH # 1.9 K/mm3 (1.2-3.4); LYMPH % 24.2 % (20.0-51.0); MEAN CELL VOLUME 92 fl (80.0-100.0); MEAN CORPUSCULAR HEMOGLOBIN 30 pg (27-31); MEAN CORPUSCULAR HGB CONC 32 g/dl (33.0-37.0); MEAN PLATELET VOLUME 8.5 fl (7.4-10.4); MONO # 0.3 K/mm3 (0.1-0.6); MONO % 4.1 % (1.7-9.3); PLATELET COUNT 383 K/mm3 (130-400); RED BLOOD COUNT 4.29 M/mm3 (4.10-5.30); REDCELL DISTRIBUTION WIDTH-CV 14.2 % (11.5-14.5)
[2023-10-14 14:48] LABS: CALCIUM 9.6 mg/dL (8.4-10.2); CREATININE, serum 0.8 mg/dL (0.57-1.11)
--- NOTE | 2023-10-14 17:02 | NUR ---
THIS NURSE CALLED PTS DAUGHTER PER REQUEST AND UPDATED
--- NOTE | 2023-10-14 17:19 | NUR ---
THIS NURSE CALLED DR WHITING TO VERIFY IF HE WANTED 20CM SUCTION TO HEIMLICH VALVE CHEST TUBE. THIS NURSE TOLD ITS NOT NEEDED
[2023-10-14] MEDS ORDERED: Mirtazapine 15 MG TAB PO SCH (21:00)
[2023-10-14] MEDS ORDERED: Gabapentin 300 MG CAP PO SCH (21:00)
[2023-10-15] VITALS (9 sets, daily range): BP systolic 120–145; BP diastolic 52–79; PULSE 81–123; TEMP 97.6–98.2
--- NOTE | 2023-10-15 04:44 | NUR ---
This nurse notes pt is alert and oriented. Experiencing moderate to intense acute pain with movement to her anterior chest and back. Pt has been taught how to deep breathe to help relieve discomfort of the Right heimlich valve palced yesterday. Collaborated with pt on plan of care for pain control. Has been up to the bedside commode to urinate with one person assist. VSS, fall precautions in place. Call light within reach.
--- NOTE | 2023-10-15 05:12 | NUR ---
Chest tube clamped per provider orders.
--- NOTE | 2023-10-15 07:45 | NUR ---
PATIENT IS A&O, NOTED OCCATIONAL FORGETFULNESS AND PATIENT REQUIRES REMINDERS. VSS. C/O PAIN AT 7/10 IN THE CHEST TUBE SITE. GAVE PRN OXYCODONE WITH AM MEDS. NO C/O N/V OR SOA. HEIMLICH VALVE WAS ORDERED TO BE CLAMPED EARLY THIS AM AND CXR DONE. DURING CHANGE OF SHIFT PATIENT FOUND TO HAVE HEIMLICH VALVE WITH HEMOSTAT TO "CLAMP" AND WAS REMOVED FROM SUCTION. CONFIRMED WITH HOUSE THAT THE ORDER FOR CLAMP WAS JUST TO REMOVE FROM SUCTION AND THE HEIMLICH VALVE DO NOT REQUIRE AN CLAMP. NOTIFIED AND GIVEN PATIENT STATUS UPDATE. NOTED DEMINISHED RIGHT LOWER LOBE. NOTED 02 OF 87-88% ON RA, PATIENT NOW ON 02 @ 2L PER NC WITH SATS ABOVE 90%. HEAD TO TOE ASSESSMENT COMPLETE. NO OTHER NEEDS AT THIS TIME. CALL LIGHT IN REACH. BED ALARM ON.
--- NOTE | 2023-10-15 08:40 | NUR ---
AT BEDSIDE TO PULL HEIMLICH VALVE AFTER REVIEWING CXR THIS AM. PATIENT IS STILL REQUIRING 02 @ 2L PER NC TO KEEP SATS ABOVE 90%. HOSPITALIST TEAM TO ROUND SOON AND WILL LIKELY ORDER A PULSE-OX TEST TO SEE IF PATIENT WILL REQUIRE HOME 02, SEE PROVIDER ORDERS/NOTES.
--- NOTE | 2023-10-15 10:15 | NUR ---
PATIENT AMBULATING IN HALLS WITH RT FOR PULSE-OX CHECK, SEE RT NOTES.
--- NOTE | 2023-10-15 10:25 | NUR ---
PATIENT'S NOW AT BEDSIDE.
--- NOTE | 2023-10-15 10:25 | NUR ---
NOTED 02 DROP TO 87% ON RA AT REST. PATIENT SITTING UP IN BED VISITING WITH , DENIES SOA OR FEELING HR IS TACHY. NOTED HR IN THE 120'S. CALLED RT AFTER PULSE OX. 02 TURNED BACK ON TO 2L PER NC WITH SATS NOW AT 90%
--- NOTE | 2023-10-15 11:04 | NUR ---
Data: Spiritual care visit offered during Freight Car Inspector rounds. Patient declined. Patient was attempting to call her . arrived during this brief visit. Assessment: None. Patient declined. Plan of Care: Freight Car Inspector provided a rosary to Patient. Chaplains will remain available as needed/requested while Patient is admitted to this hospital.
--- NOTE | 2023-10-15 12:21 | NUR ---
SW met with patient to complete inital assessment for discharge planning. Patient verified that she lives in [place] with her Omar Marc ([phone]). She sees Dr. Dixon as her PCP and uses [facility]. Patient states she has a cane, FWW and grab bars at home. Patient denied having a DPOA but agreed to complete one at this time. She listed her daughter Oralia Schwartz ([phone]) who lives in [place] as her DPOA. RN and MASON witnessed patient's signature. Original and copies provided to anabella, copy placed on chart. Per attending, patient requires oxygen for discharge. O2 order signed by Dr. Barajas. Patient agreeable to [facility] to provided oxygen. Orders and required clinicals faxed. MASON spoke with Skyler at [facility] who stated oxygen would be delivered within an hour. RN notified. Discharge plan: Home
--- NOTE | 2023-10-15 12:25 | NUR ---
OXYGEN NOW DELIVERED AND PATIENT GIVEN EDUCATION BY REP, VERBALIZED UNDERSTANDING AND HAS CONTACT NUMBER FOR ANY QUESTIONS/CONCERNS. 02 APPLIED @ 2L PER NC WITH SATS IN LOW 90'S. NO C/O SOA OR ANY PAIN. GAVE DISCHARGE INSTRUCTIONS TO PATIENT & . ANSWERED QUESTIONS/CONCERNS. DISCUSSED F/U APTS. DC'D LEFT FORARM IV AND COVERED SITE WITH GAUZE & COBAN. PATIENT IS DRESSED, PACKED AND ESCORTED OUT VIA WC TO PERSONAL VEHICLE WITH .
== END 2023-10-15 12:25 | disposition home or self-care (01) | DRG 199 ==
LOC: UNDOADMOB 09:00 → SURG 09:00 → EDSTATUS 09:04 → SURG 10-15 12:25
PROVIDERS: ADMIT Internal Medicine
PROC: 0W9930Z Drainage of Right Pleural Cavity with Drainage Device, Percutaneous Approach (ICD-10-PCS; principal; 2023-10-14)
DX: J95.811 Postprocedural pneumothorax (principal); J96.01 Acute respiratory failure with hypoxia; J90 Pleural effusion, not elsewhere classified; C34.11 Malignant neoplasm of upper lobe, right bronchus or lung; R91.8 Other nonspecific abnormal finding of lung field; Z85.01 Personal history of malignant neoplasm of esophagus; Z79.899 Other long term (current) drug therapy; Z87.891 Personal history of nicotine dependence; Z88.6 Allergy status to analgesic agent; Z91.041 Radiographic dye allergy status
CPT/HCPCS: J1650; J2250; J2270; J3010

== ENCOUNTER 2023-11-08 01:54 | Inpatient (IN) | payer MEDICARE, OTHER ==
[2023-11-08] VITALS (1061 sets, daily range): O2SAT 87–100
[~2023-11-08] VITALS: Ht 167.6 cm; Wt 75.2 kg
[~2023-11-08 01:54] MED LIST changes: +CYMBALTA 60MG60 MG PO; +FOSAMAX 10M10 MG/TAB PO
[2023-11-08] MEDS ORDERED: methylPREDNISolone Sod Succ 125 MG/2 ML VIAL IV ONE (02:00)
[2023-11-08] MEDS ORDERED: Ondansetron 4 MG/2 ML VIAL IV ONE ×2 (02:00→02:30)
[2023-11-08] MEDS ORDERED: Magnesium Sulfate 4% 50 ML IV ONE (02:00)
[2023-11-08] MEDS ORDERED: LR 1,000 ML IV ONE ×2 (02:15→03:15)
[2023-11-08 02:34] LABS: BASO % 0.4 % (0.0-2.0); EOS # 0.2 K/mm3 (0.0-0.7); EOS % 2.1 % (0.0-4.0); GRAN # 5.4 K/mm3 (1.4-6.5); GRAN % 60.6 % (42.2-75.2); HEMATOCRIT 41.8 % (37.0-47.0); HEMOGLOBIN 13.5 g/dl (12.5-16.0); LYMPH # 3.1 K/mm3 (1.2-3.4); MEAN CELL VOLUME 91 fl (80.0-100.0); MEAN CORPUSCULAR HEMOGLOBIN 30 pg (27-31); MEAN CORPUSCULAR HGB CONC 32 g/dl (33.0-37.0); MEAN PLATELET VOLUME 8.8 fl (7.4-10.4); MONO # 0.1 K/mm3 (0.1-0.6); MONO % 1.6 % (1.7-9.3); PLATELET COUNT 388 K/mm3 (130-400); RED BLOOD COUNT 4.58 M/mm3 (4.10-5.30); REDCELL DISTRIBUTION WIDTH-CV 14.6 % (11.5-14.5)
[2023-11-08 03:02] LABS: ALANINE AMINOTRANSFERASE 34 U/L (0-55); ALBUMIN 3.1 g/dL (3.4-4.8); ALKALINE PHOSPHATASE 121 U/L (40-150); ANION GAP 12 mmol/L (7-16); AST,SGOT 60 U/L (5-34); BILIRUBIN,TOTAL 0.2 mg/dL (0.2-1.2); BLOOD UREA NITROGEN 19 mg/dL (10-20); CALCIUM 9.2 mg/dL (8.4-10.2); CHLORIDE 108 mEq/L (98-107); CREATININE, serum 0.87 mg/dL (0.57-1.11); GLUCOSE 187 mg/dL (70-99); POTASSIUM 3.9 mEq/L (3.5-4.5); SODIUM 142 mEq/L (136-145); TOTAL PROTEIN 6.1 g/dl (6.2-8.1)
[2023-11-08] MEDS ORDERED: Acetaminophen 500 MG TAB PO ONE (03:15)
[2023-11-08 03:22] LABS: TROPONIN-I < 0.010 ng/mL (0.00-0.033)
[2023-11-08] MEDS ORDERED: LR 500 ML IV ONE (03:30)
[2023-11-08 04:00] LABS: COLLECTION METHOD CLEAN CATCH
[2023-11-08] MEDS ORDERED: LR 1,000 ML IV SCH ×2 (04:00→09:00)
[2023-11-08] MEDS ORDERED: Albuterol 0.083% Neb Soln 2.5 MG/3 ML UD IH ONE ×2 (04:00)
[2023-11-08] MEDS ORDERED: Ondansetron 4 MG/2 ML VIAL IV PRN (04:00)
[2023-11-08 04:21] LABS: PH 6.5 (5.0-8.5); URINE APPEARANCE CLEAR (CLEAR/HAZY); URINE BLOOD NEGATIVE (NEGATIVE); URINE COLOR YELLOW (YELLOW); URINE GLUCOSE NEGATIVE (NEGATIVE); URINE KETONE NEGATIVE (NEGATIVE); URINE NITRATE NEGATIVE (NEGATIVE); URINE PROTEIN(semi-quant) NEGATIVE (NEGATIVE)
[2023-11-08] MEDS ORDERED: Iohexol 300 - 100 ML VIAL IV ONE (05:15)
--- NOTE | 2023-11-08 05:15 | NUR ---
PATIENT ARRIVED FROM ED AT 0515. PATIENT IS TALKING AND IN GOOD SPIRITS. PATIENT HAS TWO IVS, 20G IN THE L AC AND 20G IN THE R AC. BOTH OF THOSE ARE SALINE LOCKED AT THIS TIME. PATIENT IS HOOKED UP TO OUR VITALS AND TELEMETRY MACHINE AT THIS TIME. RESPIRATORY IN HOOKING PATIENT BACK UP TO AIRVO. AIRVO SETTINGS ARE 45L AT 45%. PATIENT TOLERATING THAT WELL. PATIENT GIVEN ICE WATER, SHOWN THE CALL LIGHT, AND GIVEN TISSUES. NO OTHER CONCERNS AT THIS TIME. BED IS IN LOW POSITION, CALL LIGHT IS IN PLACE, AND BED ALARM IS ON.
--- NOTE | 2023-11-08 06:28 | NUR ---
PATIENT IS RESTING AT THIS TIME. LR IS RUNNING INTO HER R AC IV AT 125 ML/HR. BED IS IN LOW POSITION, CALL LIGHT WITHIN REACH, AND BED ALARM ON.
[2023-11-08] MEDS ORDERED: Budesonide Neb Susp 0.5 MG/2 ML AMP IH SCH (07:00)
[2023-11-08] MEDS ORDERED: Formoterol Neb Soln 20 MCG/2 ML UD IH SCH (07:00)
--- NOTE | 2023-11-08 08:42 | NUR ---
UPPON ENETERING PT ROOM PT NOTED TO BE SLEEPING WITH REGULAR RATE AND THYTHM OF BREATHING. PATIENT RESTING COMFORTABLY. NEURO ASSESMENT SHOWS AAOX4 WITH NO DEFICITS. SLIGHT WEAKNESS IN LOWER EXTREMITYS NOTED. CARDIAC ASSESMENT SHOWS SKIN PWD NORMAL HEART TONES NOTED. RESP ASSESMENT SHOWS COARSE CRACKLES THROUGHOUT LING FEILDS. BILATERLY DIMINISHED SOUNDS AND SOUNDS THAT ARE MORE DENSE ON THE LEFT LUNG. PT IS NOTED TO BE ON AERVO AT 45LPN AND 45% FIO2. RESP RATE IS NORMAL AT 14- 16 BREATHS PER MIN. GI ASSESMENT SHOWS NO DEFORMITY. ASSESMENT SHOWS NO DEFICIT. ALL BOWEL SOUNDS ACTIVE IN ALL QUADRANTS. PT ASKED FOR A CANDY SHE DOES NOT PRODUCE SALIVA SHE WOULD LIKE. PT PROVIDED WITH SMALL HARD CANDY. PT CONTACTED PER PT REQUEST.
[2023-11-08] MEDS ORDERED: Albuterol/Ipratropium 3 MG-0.5 MG/3 ML Neb Soln IH SCH (08:45)
[2023-11-08] MEDS ORDERED: Albuterol 0.042% Neb Soln 1.25 MG/3 ML UD IH PRN (08:45)
[2023-11-08] MEDS ORDERED: Albuterol/Ipratop Respimat **** subs to Albuterol/Ipratrop Nebule IH SCH (08:45)
[2023-11-08] MEDS ORDERED: dexAMETHasone 10 MG/ML VIAL IV SCH (09:00)
[2023-11-08] MEDS ORDERED: Doxycycline Hyclate 100 MG in NS 150 ML IV SCH (09:00)
[2023-11-08] MEDS ORDERED: Acetaminophen 500 MG TAB PO SCH (10:00)
--- NOTE | 2023-11-08 10:45 | NUR ---
Embedded Software Development Engineer met with patient to discuss discharge planning. Patient lives in [place] with her , Omar (ph#[phone]) and sees Dr. Mcpherson for primary care. Patient gets her medicaitons at [facility] and reported she is able to drive herself to the pharmacy to pick them up. Patient advised she uses a walker for ambulation. SW inquired about home oxygen as patient is currently requiring it. Patient stated she is not normally on oxygen. Patient has DPOA-HC in EMR designating her daughter, Oralia (ph#[phone]) and patient confirmed this is most updated copy. Patient stated she plans to return home at time of discharge. SW contacted Oralia to check in and she was unaware patient was hospitalized. SW provided contact information to the ICU so she could call for an update. Discharge Plan: Home pending further recommendations
--- NOTE | 2023-11-08 11:21 | NUR ---
D: Clinical Research Scientist stopped by room on rounds. A: Pt was resting and content. Pt has no needs right now. P: Clinical Research Scientist informed pt that if she needed anything from the medical clerical assistant area to let her nurse know. Clinical Research Scientist will follow up as needed.
--- NOTE | 2023-11-08 20:00 | NUR ---
Pt resting quietly and comfortably in bed. VSS. IV infusing with antibiotic. Port infusing with LR. Pt denies pain or discomfort at this time. Pt ambulated to commode without difficulty. Evening assessment completed at this time. Pt removed hearing aids. placed in labeled cup for pt to reapply in the morning. Pt repositioned and states that she is comfortable and ready to get some sleep tonight.
[2023-11-08] MEDS ORDERED: Mirtazapine 15 MG TAB PO SCH (22:29)
[2023-11-09] VITALS (548 sets, daily range): BP systolic 127–146; BP diastolic 63–90; PULSE 74–88; TEMP 98.1–98.5; O2SAT 47–100
[2023-11-09 05:12] LABS: MEAN CELL VOLUME 89 fl (80.0-100.0); MEAN CORPUSCULAR HGB CONC 34 g/dl (33.0-37.0); MEAN PLATELET VOLUME 9.2 fl (7.4-10.4); RED BLOOD COUNT 3.44 M/mm3 (4.10-5.30); REDCELL DISTRIBUTION WIDTH-CV 14.7 % (11.5-14.5)
[2023-11-09 05:17] LABS: HEMATOCRIT 30.5 % (37.0-47.0); HEMOGLOBIN 10.3 g/dl (12.5-16.0); MEAN CORPUSCULAR HEMOGLOBIN 30 pg (27-31); PLATELET COUNT 248 K/mm3 (130-400)
[2023-11-09 05:38] LABS: ALBUMIN 2.7 g/dL (3.4-4.8); BILIRUBIN,TOTAL 0.5 mg/dL (0.2-1.2); CALCIUM 9.2 mg/dL (8.4-10.2); CREATININE, serum 0.75 mg/dL (0.57-1.11); POTASSIUM 4.2 mEq/L (3.5-4.5); TOTAL PROTEIN 5.5 g/dl (6.2-8.1)
[2023-11-09 05:41] LABS: BAND 1 % (0-10); LYMPHOCYTE 5 % (20.0-51.0); NEUTROPHILS 92 % (42.0-75.2); PLATELET ESTIMATE NORMAL (NORMAL)
--- NOTE | 2023-11-09 07:00 | NUR ---
Report received from HARVINDER Diez; patient currently resting in bed on 5L of oxygen via NC. Patient has LR running through her accessed chest port, she also has one peripheral INT. No other lines or tubes are in place at this time. Patient's vital signs are within normal limits this morning.
[2023-11-09] MEDS ORDERED: busPIRone 7.5 MG TABLET PO SCH (09:00)
[2023-11-09] MEDS ORDERED: Gabapentin 300 MG CAP PO SCH (09:00)
[2023-11-09] MEDS ORDERED: DULoxetine 60 MG CAP PO SCH (09:00)
--- NOTE | 2023-11-09 09:17 | NUR ---
pressed or blown glass worker met with pt to offer HH services as she has new oxygen needs. Pt reports she has had this in the past and would be open to it again. SW provided Medicare.gov list for her to review. She reports her friend is coming by later and can recall the agency she used. SW advised that they will also assist with home oxygen if she needs this. Pt verbalized understanding. MASON spoke with Dr. Sharma and asked for PT/OT to assess pt for needs. Discharge Plan: likely home with HH
[2023-11-09] MEDS ORDERED: Acetaminophen 500 MG TAB PO PRN ×2 (10:00)
--- NOTE | 2023-11-09 13:15 | NUR ---
Reported off to HARVINDER Mendoza; patient taken upstairs to medical floor, room 308 in wheelchair by HARVINDER Alan. Patient's belongings brought up along with lunch tray by this nurse. Patient went up with fluids and zosyn running through her central port and her peripheral line. Patient was on room air and vital signs were within normal limits.
--- NOTE | 2023-11-09 13:40 | NUR ---
PATIENT ALERT AND ORIENTED X4. ON ROOM AIR. PATIENT DENIES PAIN AT THIS TIME. SITTING IN BED CONVERSATING WITH FRIEND. PATIENT DENIES ANY CONCERNS AT THIS TIME. CALL LIGHT WITHIN REACH. BED AT LOWEST POSITION. BED ALARM ON.
--- NOTE | 2023-11-09 21:26 | NUR ---
PATIENT RESTING IN BED. DENIES ANY PAIN AT THIS TIME. CALL LIGHT WITHIN REACH. BED IS LOCKED AND IN LOW POSITION.
[2023-11-10] VITALS (7 sets, daily range): BP systolic 127–156; BP diastolic 61–80; PULSE 76–87; TEMP 97.9–98.5
[2023-11-10 06:35] LABS: HEMOGLOBIN 10.9 g/dl (12.5-16.0); MEAN CELL VOLUME 89 fl (80.0-100.0); MEAN CORPUSCULAR HEMOGLOBIN 30 pg (27-31); MEAN CORPUSCULAR HGB CONC 34 g/dl (33.0-37.0); MEAN PLATELET VOLUME 9.4 fl (7.4-10.4); PLATELET COUNT 280 K/mm3 (130-400); RED BLOOD COUNT 3.64 M/mm3 (4.10-5.30); REDCELL DISTRIBUTION WIDTH-CV 15.1 % (11.5-14.5)
[2023-11-10 06:37] LABS: HEMATOCRIT 32.2 % (37.0-47.0)
[2023-11-10 07:31] LABS: BAND 17 % (0-10); LYMPHOCYTE 9 % (20.0-51.0); NEUTROPHILS 74 % (42.0-75.2); PLATELET ESTIMATE NORMAL (NORMAL)
[2023-11-10 08:11] LABS: ALBUMIN 2.7 g/dL (3.4-4.8); BILIRUBIN,TOTAL 0.3 mg/dL (0.2-1.2); CREATININE, serum 0.73 mg/dL (0.57-1.11); POTASSIUM 3.8 mEq/L (3.5-4.5); TOTAL PROTEIN 5.6 g/dl (6.2-8.1)
--- NOTE | 2023-11-10 08:15 | NUR ---
PATIENT ALERT AND ORIENTED X4. ON ROOM AIR. PATIENT FLUIDS INFUSING PER EMAR. PATIENT REPORTS SOME DISCOMFORT WITH IV WHILE MEDS ARE GOING IN. IV FLUSHES WELL, NO REDNESS, SWELLING. MEDS SWITCHED TO PORT SITE. PATIENT CONCERSATING WITH FRIEND AT BEDSIDE. CALL LIGHT WITHIN REACH. BED AT LOWEST POSITION.BED ALARM ON.
--- NOTE | 2023-11-10 10:58 | NUR ---
casting house worker received a call from [facility] reporting pt has called them and was on services last year reporting to want to utilize them. SW advised she was not aware of pt's preference, but would pass along to main MASON Limon to discuss with pt.
[2023-11-10] MEDS ORDERED: Mag/Al Hydrox/Simeth Susp 30 ML CUP PO PRN (11:45)
[2023-11-10] MEDS ORDERED: Mag/Al Hydrox/Simeth Susp 30 ML CUP PO ONE (11:45)
--- NOTE | 2023-11-10 15:34 | NUR ---
Electronic Assembler Group Leader met with patient to follow up on discharge planning. Patient reviewed Medicare.gov list of HH agencies and selected [facility]. SW contacted [facility] and faxed referral. Vijaya at [facility] advised they are able to accept. SW also contacted patient's DPOA-HCOralia to provide update. Discharge Plan: Home with [facility]
--- NOTE | 2023-11-10 22:03 | NUR ---
PATIENT IS RESTING IN BED. DENIES PAIN AT THIS TIME. REMAINS STABLE ON ROOM AIR. CALL LIGHT WITHIN REACH. BED IS LOCKED AND IN LOW POSITION.
[2023-11-11 04:15] VITALS: BP 134/70; PULSE 67; TEMP 97.6
[2023-11-11 06:54] LABS: BASO % 0.2 % (0.0-2.0); GRAN % 86.5 % (42.2-75.2); HEMOGLOBIN 11.1 g/dl (12.5-16.0); LYMPH # 1.9 K/mm3 (1.2-3.4); LYMPH % 10.1 % (20.0-51.0); MEAN CELL VOLUME 90 fl (80.0-100.0); MEAN CORPUSCULAR HEMOGLOBIN 30 pg (27-31); MEAN CORPUSCULAR HGB CONC 33 g/dl (33.0-37.0); MEAN PLATELET VOLUME 9.3 fl (7.4-10.4); MONO # 0.4 K/mm3 (0.1-0.6); MONO % 2.1 % (1.7-9.3); PLATELET COUNT 297 K/mm3 (130-400); RED BLOOD COUNT 3.75 M/mm3 (4.10-5.30); REDCELL DISTRIBUTION WIDTH-CV 15.1 % (11.5-14.5)
[2023-11-11 06:56] LABS: HEMATOCRIT 33.8 % (37.0-47.0)
[2023-11-11 07:22] LABS: ALBUMIN 2.7 g/dL (3.4-4.8); BILIRUBIN,TOTAL 0.3 mg/dL (0.2-1.2); CALCIUM 9.3 mg/dL (8.4-10.2); CREATININE, serum 0.76 mg/dL (0.57-1.11); POTASSIUM 3.8 mEq/L (3.5-4.5); TOTAL PROTEIN 5.7 g/dl (6.2-8.1)
[2023-11-11 07:23] VITALS: BP 156/72; PULSE 74; TEMP 98.1
--- NOTE | 2023-11-11 07:26 | NUR ---
SHIFT REPORT GIVEN BY SNOWBLOWER MECHANIC NURSE SERAFIN. PATIENT SITTING IN FOWLERS IN BED ALERT AND ORIENTED. PATIENT PLEASANT AND SPEAKING WITH STUDENT NURSE AND ONCOMING DAYSHIFT NURSE.
[2023-11-11 07:44] VITALS: BP 154/84; PULSE 99; TEMP 98.1
[2023-11-11] MEDS ORDERED: PREDNISONE20 MG PO (08:25)
[2023-11-11] MEDS ORDERED: PROTONIX 40MG T40 MG PO (08:25)
[2023-11-11] MEDS ORDERED: ANTACID 225 MG360 M1 PO (08:25)
[2023-11-11] MEDS ORDERED: ANTACID ULTRA1000 M1 PO (08:26)
[2023-11-11] MEDS ORDERED: Doxycycline Monohydrate 100 MG CAP PO SCH (09:00)
[2023-11-11] MEDS ORDERED: predniSONE 20 MG TAB PO SCH (09:00)
--- NOTE | 2023-11-11 10:28 | NUR ---
PATIENT RECEIVED MORNING PO MEDICATIONS WITH NO COMPLICATIONS. AT 1000 PATIENT RECEIVED IV ZOSIN PER LEFT SUBCLAVICAL PORT. NO COMPLAINTS AND PATIENT TOLERATED WELL. PATIENT IS REMINDED TO CALL FOR ASSISTANCE TO RESTROOM TO PREVENT FALLS.
[2023-11-11] MEDS ORDERED: PROAIR HFA0.09 MG/AC IH (10:38)
[2023-11-11] MEDS ORDERED: RT ADVAIR 228 DISKUS IH (10:38)
[2023-11-11] MEDS ORDERED: CEFTIN500 MG PO (10:39)
[2023-11-11 11:01] VITALS: BP 156/68; PULSE 76; TEMP 98.1
--- NOTE | 2023-11-11 12:37 | NUR ---
Patient discharged to home, educated on discharge instructions and new medications, pt verbalized understanding. IV removed prior to discharge, catheter tip intact. Portacath deaccessed prior to discharge per policy. All belongings sent home with pt. Pt assisted to car by nursing staff.
--- NOTE | 2023-11-11 13:56 | NUR ---
Bond Broker met with patient to present and review IM form. Patient's friend is at bedside. Patient verbalized understanding and provided signature. SW placed form in chart and provided copy to patient. SW contacted [facility] and faxed discharge orders. Louisa at [facility] accepted and plans to schedule patient to start tomorrow. Discharge Plan: Home with HH
== END 2023-11-11 12:39 | disposition home or self-care (01) | DRG 871 ==
LOC: COL.ER 01:54 → ICU 03:44 → MEDICAL 11-09 13:10
PROVIDERS: Emergency Medicine; Nurse Practitioner Family; ADMIT Internal Medicine
DX: A41.9 Sepsis, unspecified organism (principal); J18.1 Lobar pneumonia, unspecified organism; J96.01 Acute respiratory failure with hypoxia; J44.0 Chronic obstructive pulmonary disease with (acute) lower respiratory infection; J44.1 Chronic obstructive pulmonary disease with (acute) exacerbation; E87.20 Acidosis, unspecified; C34.91 Malignant neoplasm of unspecified part of right bronchus or lung; I48.92 Unspecified atrial flutter; Z66 Do not resuscitate; R65.20 Severe sepsis without septic shock; R13.10 Dysphagia, unspecified; R79.89 Other specified abnormal findings of blood chemistry; G89.29 Other chronic pain; M54.9 Dorsalgia, unspecified; Z20.822 Contact with and (suspected) exposure to COVID-19; I12.9 Hypertensive chronic kidney disease with stage 1 through stage 4 chronic kidney disease, or unspecified chronic kidney disease; N18.9 Chronic kidney disease, unspecified; I95.9 Hypotension, unspecified; R73.9 Hyperglycemia, unspecified; Z90.49 Acquired absence of other specified parts of digestive tract; Z85.038 Personal history of other malignant neoplasm of large intestine; Z92.21 Personal history of antineoplastic chemotherapy; Z92.3 Personal history of irradiation; Z79.899 Other long term (current) drug therapy; Z87.891 Personal history of nicotine dependence; Z88.6 Allergy status to analgesic agent; Z91.041 Radiographic dye allergy status; Z23 Encounter for immunization
CPT/HCPCS: J1100; J1650; J2405; J2543; J2919; J3475; J7120; J7512; Q9967

== ENCOUNTER 2024-02-03 10:52 | Emergency (ER) | payer MEDICARE, OTHER ==
[~2024-02-03] VITALS: Ht 165.1 cm; Wt 70.9 kg
[~2024-02-03 10:52] MED LIST changes: +ANTACID 225 MG360 M1 PO; +ANTACID ULTRA1000 M1 PO; +CEFTIN500 MG PO; +DECADRON 4MG TAB4 MG PO; +FOLIC ACID 11 MG/TA1 PO; +KEYTRUDA25 MG/ML IV; +PHENERGAN25 MG; +RT ADVAIR 228 DISKUS IH; +TRELEGY ELLIPT1 EACH IH; +VITAMIN B-12500 MC4 PO
[2024-02-03] MEDS ORDERED: NS 1,000 ML IV ONE ×2 (11:30→13:45)
[2024-02-03 11:35] LABS: BASO % 0.1 % (0.0-2.0); GRAN # 6.3 K/mm3 (1.4-6.5); GRAN % 63.1 % (42.2-75.2); HEMATOCRIT 40.1 % (37.0-47.0); HEMOGLOBIN 13.1 g/dl (12.5-16.0); LYMPH # 2.6 K/mm3 (1.2-3.4); LYMPH % 25.5 % (20.0-51.0); MEAN CELL VOLUME 88 fl (80.0-100.0); MEAN CORPUSCULAR HEMOGLOBIN 29 pg (27-31); MEAN CORPUSCULAR HGB CONC 33 g/dl (33.0-37.0); MEAN PLATELET VOLUME 9.2 fl (7.4-10.4); PLATELET COUNT 381 K/mm3 (130-400); RED BLOOD COUNT 4.57 M/mm3 (4.10-5.30); REDCELL DISTRIBUTION WIDTH-CV 18.4 % (11.5-14.5)
[2024-02-03 11:40] LABS: ALBUMIN 3.7 g/dL (3.4-4.8); BILIRUBIN,TOTAL 0.3 mg/dL (0.2-1.2); CREATININE, serum 0.97 mg/dL (0.57-1.11); POTASSIUM 3.9 mEq/L (3.5-4.5); TOTAL PROTEIN 7.3 g/dl (6.2-8.1)
[2024-02-03 14:07] LABS: COLLECTION METHOD CLEAN CATCH
[2024-02-03 14:15] LABS: PH 6.5 (5.0-8.5); URINE APPEARANCE CLEAR (CLEAR/HAZY); URINE BLOOD NEGATIVE (NEGATIVE); URINE COLOR YELLOW (YELLOW); URINE GLUCOSE NEGATIVE (NEGATIVE); URINE KETONE NEGATIVE (NEGATIVE); URINE NITRATE NEGATIVE (NEGATIVE); URINE PROTEIN(semi-quant) NEGATIVE (NEGATIVE); URINE UROBILINOGEN 0.2 E.U/dL (0.2-1.0)
[2024-02-03 14:59] LABS: CLOSTRIDIUM DIFF A/B NEG
[2024-02-03] MEDS ORDERED: ZITHROMAX Z PA250 MG PO (15:25)
[2024-02-03 15:42] VITALS: BP 164/87; PULSE 74
== END 2024-02-03 15:42 | disposition home or self-care (01) ==
LOC: COL.ER 10:52
PROVIDERS: Physician Assistant
DX: K52.1 Toxic gastroenteritis and colitis (principal); T36.0X5A Adverse effect of penicillins, initial encounter; E86.0 Dehydration; J18.9 Pneumonia, unspecified organism; Z87.09 Personal history of other diseases of the respiratory system; Z85.038 Personal history of other malignant neoplasm of large intestine; Z85.118 Personal history of other malignant neoplasm of bronchus and lung
CPT/HCPCS: J7030